=== PATIENT | female | born 1990 | race Caucasian/White ===

== ENCOUNTER 2018-12-30 01:10 | Inpatient (IN) | payer BC, SELFPAY ==
[2018-12-30 03:55] VITALS: BMI 34.9
[2018-12-30] MEDS: 0.9% Saline Lock 10 ML Syringe IV (03:55)
[2018-12-30 04:16] LABS: Hematocrit 39.6 % (37-47); Hemoglobin 13.6 g/dl (12.0-15.0); Mean Corp Hgb Conc 34.3 g/gl (32-36); Mean Corpuscular Volume 87.2 fL (81-99); Mean Platelet Vol. 10.2 fl (6.2-12.0); Platelet Count 266 K/mm3 (150-450); RBC Distribution Width CV 12.9 % (11.6-14.6); RBC Distribution Width SD 39.9 fl (35.1-43.9); Red Blood Count 4.54 M/mm3 (4.2-5.4); White Blood Count 20.9 K/mm3 (4.4-11.0)
[2018-12-30 04:18] LABS: Scan Indicated on CBC? Y/N NO
--- NOTE | 2018-12-30 04:22 | PCM.HP.OB ---
- Problem List (1) Active labor at term Status: Acute (2) History of depression Status: Acute History Date of Admission: 12/30/18 Final ERICK: 12/23/18 Final ERICK Source: LMP Gestational age: 41 Weeks and 0 Days History of this : This is a 28 year-old, G [1], P [0], at 41 weeks gestational age by LMP, confirmed by U/S. Presented to L&D with contractions that started yesterday morning and irregular. Throughout the evening contractions became more regular and this am contractions less than 5 minutes apart and decided to come for admission. Upon arrival cervix 6cm and admitted. Coping well. , mother, and medical program specialist at bedside. Allergies No Known Allergies Allergy (Verified 12/30/18 03:34) Home Medications: Home Medications Vits [Prenatabs FA] 1 tablet PO DAILY 12/30/18 Smoking Status: Never smoker Alcohol: None Number of Fetus(es): 1 Heart Tracing: Admission strip: 155, moderate variability, accels, no decels, Category 1 TOCO: contractions every 2 -3 minutes, strong History Past Pregnancies: Past Pregnancies Delivery Date Name GA/Weeks Outcome Route Weight Infant Gender Labor Length Anesthesia Delivery Location Provider FOB Labs: RPR negative HIV negative GC/CT negative GBS negative Urine tox screen negative Rubella Immune HBsAG Immune A positive, antibody screen negative. Expected Infant Delivery Method: Spontaneous Vaginal Describe any other labor & delivery plans:: Would like unmedicated Review of Systems Constitutional: Denies: Chills, Fever, Weight Change Cardiovascular: Denies: Chest Pain, Palpitations Respiratory: Denies: Cough, Shortness of breath at rest, Sputum production Gastrointestinal: Denies: Abdominal Pain, Nausea, Vomiting Genitourinary: Denies: Dysuria Psychiatric: Denies: Anxiety, Depression, Homicidal Ideations, Suicidal Ideations Physical Exam General: Alert, Oriented x3, No apparent distress HEENT: Atraumatic, Normocephalic Cardiovascular: Regular rate, Regular Rhythm, No murmurs Lungs: Clear to auscultation, Normal air movement, No rhonchi, No wheeze Abdomen: Non Tender, Gravid Extremities:: No edema Neurological: Cranial nerves II-XII grossly intact UNDERWRITING SALES REPRESENTATIVE: Normal external genitalia Estimated gestational size: Appropriate for gestational size Presentation: Cephalic Cervix Dilation (cm): 8 - IBOW Station: -1 Effacement (%): 90 - Anterior lip thickening Assessment/Plan All Active Problems Active labor at term (Acute) History of depression (Acute) This is a 28 year-old, G [1], P [0], at 41 weeks gestational age. A:Active labor progressing Category 1 FHT P: 1) Admit to L&D 2) Routine labs and IV saline lock 3) Positional changes. Ok for tub, shower, or nitrous. 4) Intermittent auscultation 5) notified of admission
--- NOTE | 2018-12-30 04:28 | HP.PCM_ITS ---
- Problem List (1) Active labor at term Status: Acute (2) History of depression Status: Acute History Date of Admission: 12/30/18 Final ERICK: 12/23/18 Final ERICK Source: LMP Gestational age: 41 Weeks and 0 Days History of this : This is a 28 year-old, G [1], P [0], at 41 weeks gestational age by LMP, confirmed by U/S. Presented to L&D with contractions that started yesterday morning and irregular. Throughout the evening contractions became more regular and this am contractions less than 5 minutes apart and decided to come for admission. Upon arrival cervix 6cm and admitted. Coping well. , mother, and water service supervisor at bedside. Allergies No Known Allergies Allergy (Verified 12/30/18 03:34) Home Medications: Home Medications Vits [Prenatabs FA] 1 tablet PO DAILY 12/30/18 Smoking Status: Never smoker Alcohol: None Number of Fetus(es): 1 Heart Tracing: Admission strip: 155, moderate variability, accels, no decels, Category 1 TOCO: contractions every 2 -3 minutes, strong History Past Pregnancies: Past Pregnancies Delivery Date Name GA/Weeks Outcome Route Weight Infant Gender Labor Length Anesthesia Delivery Location Provider FOB Labs: RPR negative HIV negative GC/CT negative GBS negative Urine tox screen negative Rubella Immune HBsAG Immune A positive, antibody screen negative. Expected Infant Delivery Method: Spontaneous Vaginal Describe any other labor & delivery plans:: Would like unmedicated Review of Systems Constitutional: Denies: Chills, Fever, Weight Change Cardiovascular: Denies: Chest Pain, Palpitations Respiratory: Denies: Cough, Shortness of breath at rest, Sputum production Gastrointestinal: Denies: Abdominal Pain, Nausea, Vomiting Genitourinary: Denies: Dysuria Psychiatric: Denies: Anxiety, Depression, Homicidal Ideations, Suicidal Ideations Physical Exam General: Alert, Oriented x3, No apparent distress HEENT: Atraumatic, Normocephalic Cardiovascular: Regular rate, Regular Rhythm, No murmurs Lungs: Clear to auscultation, Normal air movement, No rhonchi, No wheeze Abdomen: Non Tender, Gravid Extremities:: No edema Neurological: Cranial nerves II-XII grossly intact STRANDING SUPERVISOR: Normal external genitalia Estimated gestational size: Appropriate for gestational size Presentation: Cephalic Cervix Dilation (cm): 8 - IBOW Station: -1 Effacement (%): 90 - Anterior lip thickening Assessment/Plan All Active Problems Active labor at term (Acute) History of depression (Acute) This is a 28 year-old, G [1], P [0], at 41 weeks gestational age. A:Active labor progressing Category 1 FHT P: 1) Admit to L&D 2) Routine labs and IV saline lock 3) Positional changes. Ok for tub, shower, or nitrous. 4) Intermittent auscultation 5) notified of admission
[2018-12-30] MEDS: Lactated Ringers 1,000 ML 50 ML IV (06:34)
--- NOTE | 2018-12-30 07:16 | PCM.PROGNOTE ---
Patient Problems: Active and Suspected Problems Active labor at term (Acute) History of depression (Acute) Subjective: Resting on right side in bed with peanut ball. , mother and Auto Former Machine Operator at bedside. Objective: Cervical exam 9cm/90%0 TOCO: every 2-4 minutes, strong Patient placed back on heart monitor and variable deceleration noted. FHR: 130, moderate variability, variable decels, accels, Category 2 - Physical Exam Weight: 203 lb 7.787 oz Body Mass Index (BMI) 34.9 Intake and Output for Last 24 Hours 12/28/18 12/29/18 12/30/18 23:59 23:59 23:59 Intake Total 400 / 400 Output Total 0 / 0 Balance 400 / 400 Laboratory Tests Past 24 Hrs 12/30/18 12/30/18 03:55 03:55 WBC 20.9 H RBC 4.54 Hgb 13.6 Hct 39.6 MCV 87.2 MCH 30.0 MCHC 34.3 RDW 12.9 RDW Differential 39.9 Plt Count 266 MPV 10.2 Blood Type A POSITIVE Antibody Screen NEGATIVE Medical Necessity - Tobacco Use Smoking Status: Never smoker Assessment/Plan All Active Problems Active labor at term (Acute) History of depression (Acute) A: Active Labor Category 2 FHT P: 1) Continuous monitoring. 2) Positional changes 3) Fluid bolus 4) notified of patient status.
--- NOTE | 2018-12-30 07:52 | OB.TRI.PN ---
Progress Notes Date of Service: 12/30/18 Laboratory Studies: Laboratory Tests 12/30/18 12/30/18 Range/Units 03:55 03:55 WBC 20.9 H (4.4-11.0) K/mm3 RBC 4.54 (4.2-5.4) M/mm3 Hgb 13.6 (12.0-15.0) g/dl Hct 39.6 (37-47) % MCV 87.2 (81-99) fL MCH 30.0 (27.0-32.0) pg MCHC 34.3 (32-36) g/gl RDW 12.9 (11.6-14.6) % RDW Differential 39.9 (35.1-43.9) fl Plt Count 266 (150-450) K/mm3 MPV 10.2 (6.2-12.0) fl Blood Type A POSITIVE Antibody Screen NEGATIVE
[2018-12-30] MEDS: Terbutaline 1 MG/ML Vial 0.25 MG SC (08:20)
[2018-12-30] MEDS: Oxytocin 30 units/NS 500 ml 30 UNITS/500 ML IV.SOLN 334 UNITS IV (08:52)
--- NOTE | 2018-12-30 09:13 | PCM.PROGNOTE ---
Patient Problems: Active and Suspected Problems Active labor at term (Acute) History of depression (Acute) Subjective: 0752 progress note. Patient with movement side to side, hands and knees, and positioning to improve heart rate. 02 via face mask and fluid bolus. Objective: FHT 125, moderate variability, recurrent variable decels TOCO: every 2-3 minutes, lasting 60-90 seconds, strong to palpation. 8 cm/100%/+1 - Physical Exam Weight: 203 lb 7.787 oz Body Mass Index (BMI) 34.9 Intake and Output for Last 24 Hours 12/28/18 12/29/18 12/30/18 23:59 23:59 23:59 Intake Total 400 / 400 Output Total 0 / 0 Balance 400 / 400 Laboratory Tests Past 24 Hrs 12/30/18 12/30/18 03:55 03:55 WBC 20.9 H RBC 4.54 Hgb 13.6 Hct 39.6 MCV 87.2 MCH 30.0 MCHC 34.3 RDW 12.9 RDW Differential 39.9 Plt Count 266 MPV 10.2 Blood Type A POSITIVE Antibody Screen NEGATIVE Medical Necessity - Tobacco Use Smoking Status: Never smoker Assessment/Plan All Active Problems Active labor at term (Acute) History of depression (Acute) A:Active Labor, protracted Categroy 2 FHT P: 1) Positional changes, 02 via face mask for recurrent variable decels. Planning amnioinfusion if no resolution. 2) notified or cervical change with progression and FHR recurrent variable decelerations and plan to star amnioinfusion, agrees with plan. 3) Patient to have straight cath due to inability to urinate since admission. 4) Nitrous oxide attempted for pain relief and baby FHT to category 2 and discontinued.
[2018-12-30] MEDS: Oxytocin 30 units/NS 500 ml 30 UNITS/500 ML IV.SOLN 167 UNITS IV (09:24)
--- NOTE | 2018-12-30 09:27 | PCM.OB.VAG ---
- Problem List (1) Active labor at term Status: Acute (2) History of depression Status: Acute (3) Vaginal delivery Status: Acute Vaginal Delivery Maternal Presentation: Active Labor Amniotic Membrane Rupture Type: Artificial - Clear fluid. Terminal meconium Amniotic Fluid Description: Clear Final ERICK: 12/23/18 Gestational age: 41 Weeks and 4 Days Date of Procedure: 12/30/18 Pre-Operative Diagnosis: Active Labor Post-Operative Diagnosis: Surgery/ Procedure Performed: Spontaneous Vaginal Delivery Type of Anesthesia: None Description of Procedure: Patient with recurrent variable decels without improvement. notfied to review tracing. Planning to start amnioinfusion but FHT down to 50, on unit. Patient assessed and complete +2 station. Taken to OR for section or possible vacuum extraction. Once in OR, of viable male infant over intact perineum unmedicated. APGARS 5,8. Delivery complicated by nuchal cord x3, delivered through and terminal meconium. place on maternal abdomen. Spontaneous cry, poor tone and color. Cord clamped and cut by FOB. Baby handed to nursery staff for evaluation by character impersonator. Pitocin started for active third stage management. Placenta delivered intact via maternal effort, 3 vessel cord. Perineum inspected and intact with no lacerations. Vaginal vault extracted for clots. Sponge and instrument count correct. Cord gases obtained. Fundus firm, hemostasis achieved, 300ml EBL. Planning to breastfeed. Mom and baby stable. Baby assisted by nursery staff at warmer. present for delivery. Presentation: Vertex Placental Delivery Description: Spontaneous Placenta Disposition: [facility] Cord Vessel Description: 3 Vessels Cord Gases drawn per routine: ABG, VBG Cord Entanglement: Around neck x 2, loose - CAN x 3 Estimated Blood Loss: 300 ml Infant A gender: Male (1 minute): 5 (5 minute): 8 Episiotomy Description: None Laceration: None Medications given after delivery: IV Pitocin
[2018-12-30 14:00] VITALS: BP 123/48; PULSE 111; RESP 18; TEMP 37
--- NOTE | 2018-12-30 17:20 | PCM.DCVAG ---
Discharge Diet: No Restrictions Discharge Activity: Return to Normal Activity May resume sexual activity in: 4-6 weeks Weight Bearing Status: Weight bearing as tolerated Additional Instructions: If you experience any of the following, contact your healthcare provider. Bleeding that soaks a pad every hour for 2 hours Fever 100.4 or higher Unrelieved incision or abdominal pain Swelling, redness, discharge or bleeding from your incision or episiotomy site Your incision begins to separate Problems urinating (including inability to urinate or burning while urinating). Visual changes Severe headache Flu-like symptoms Pain or redness in one of both of your breasts Pain, warmth, tenderness or swelling in your legs, especially the calf area Frequent nausea and vomiting Symptoms of depression or anxiety If you experience any of the following, call 911 or go to the nearest Emergency Room. Chest pain Problems breathing Seizure activity Partial or complete paralysis of a body part, slurred speech, weakness or drooping of the face, or a sudden inability to walk or hold your balance Allergies/Adverse Reactions: Allergies No Known Allergies Allergy (Verified 12/30/18 03:34) Medications to take at Discharge Vits [Prenatabs FA] 1 tablet PO DAILY 12/30/18 Test Results: Test results from this visit will be discussed in further detail at your follow-up appointment, if applicable.
--- NOTE | 2018-12-30 17:21 | DCINST_ITS ---
Discharge Diet: No Restrictions Discharge Activity: Return to Normal Activity May resume sexual activity in: 4-6 weeks Weight Bearing Status: Weight bearing as tolerated Additional Instructions: If you experience any of the following, contact your healthcare provider. * Bleeding that soaks a pad every hour for 2 hours * Fever 100.4 or higher * Unrelieved incision or abdominal pain * Swelling, redness, discharge or bleeding from your incision or episiotomy site * Your incision begins to separate * Problems urinating (including inability to urinate or burning while urinating). * Visual changes * Severe headache * Flu-like symptoms * Pain or redness in one of both of your breasts * Pain, warmth, tenderness or swelling in your legs, especially the calf area * Frequent nausea and vomiting * Symptoms of depression or anxiety If you experience any of the following, call 911 or go to the nearest Emergency Room. * Chest pain * Problems breathing * Seizure activity * Partial or complete paralysis of a body part, slurred speech, weakness or drooping of the face, or a sudden inability to walk or hold your balance Allergies/Adverse Reactions: Allergies No Known Allergies Allergy (Verified 12/30/18 03:34) Medications to take at Discharge Vits [Prenatabs FA] 1 tablet PO DAILY 12/30/18 Test Results: Test results from this visit will be discussed in further detail at your follow- up appointment, if applicable.
[2018-12-30 17:30] VITALS: BP 118/62; PULSE 105; RESP 16; TEMP 36.3
--- NOTE | 2019-01-06 14:14 | NURSING ---
No answer on follow up phone call. Left voicemail.
== END 2018-12-30 18:45 | disposition home or self-care (01) | DRG 807 ==
PROVIDERS: Admitting Provider Obstetrics & Gynecology; Referring Provider Obstetrics & Gynecology; Visit Provider Obstetrics & Gynecology
DX: O69.81X0 Labor and delivery complicated by cord around neck, without compression, not applicable or unspecified (principal); Z37.0 Single live birth; O76 Abnormality in fetal heart rate and rhythm complicating labor and delivery; O77.0 Labor and delivery complicated by meconium in amniotic fluid; Z3A.41 41 weeks gestation of pregnancy
CPT/HCPCS: 59025; 59050; 85027; 86850; 86900; 99218; J7120; A4216; G0378

== ENCOUNTER 2021-02-08 10:10 | Inpatient (IN) | payer MEDICAID, SELFPAY ==
[2021-02-08] VITALS (18 sets, daily range): BP systolic 98–124; BP diastolic 50–85; PULSE 64–90; RESP 16; TEMP 36.6–37.1; BMI 34.4
[2021-02-08 10:55] LABS: Absolute Lymphocyte Count 1.45 X10^3/uL (0.83-4.51); Absolute Neutrophil Count 12.4 X10^3/uL (2.0-7.7); Basophil# 0.03 X10^3/uL; Basophil% 0.2 % (0-1); Eosinophil# 0.02 X10^3/uL; Eosinophils% 0.1 % (0-5); Hematocrit 43.9 % (37-47); Hemoglobin 14.8 g/dL (12.0-15.0); Lymphocyte # 1.45 X10^3/ul (4.0); Lymphocyte % 9.7 % (19-41); Mean Corp Hgb Conc 33.7 g/dL (32-36); Mean Corpuscular Hgb 29.5 pg (27.0-32.0); Mean Corpuscular Volume 87.5 fL (81-99); Mean Platelet Vol. 10.4 fl (6.2-12.0); Monocyte# 0.96 X10^3/uL; Monocyte% 6.4 % (0-10); NRBC Flagged by Analyzer 0 % (0-5); Neutrophil # 12.44 X10^3/uL (2.7-7.7); Neutrophil % 83.1 % (47-70); Platelet Count 265 K/mm3 (150-450); RBC Distribution Width CV 12.6 % (11.6-14.6); RBC Distribution Width SD 40.2 fl (35.1-43.9); Red Blood Count 5.02 M/mm3 (4.2-5.4)
[2021-02-08] MEDS: Oxytocin 30 units/NS 500 ml 30 UNITS/500 ML IV.SOLN 334 UNITS IV (11:45)
--- NOTE | 2021-02-08 12:03 | HP.PCM_ITS ---
- Problem List (1) Active labor at term Status: Acute History Date of Admission: 12/30/18 Final ERICK: 02/26/21 Final ERICK Source: LMP Gestational age: 37 Weeks and 3 Days History of this : This is a 30 year-old, G [3], P [1], at 37.3 weeks gestational age that presents in spontaneous, active labor. Patient is GDM class A1 and well controlle. has been uncomplicated other than COIVID 19 positive diagnosis at 25 weeks gestation. Allergies No Known Allergies Allergy (Verified 02/08/21 10:59) Home Medications: Home Medications Vits [Prenatabs FA] 1 tablet PO DAILY 12/30/18 Smoking Status: Never smoker Number of Fetus(es): 1 NST - FHR Rate Baby A Baseline: 145 Variability:: Moderate Accelerations:: 15 x 15 Decelerations:: None NST Reactive:: Yes FHR Category:: Category I Uterine Activity:: Palpate every 2-3 minutes and moderate History Past Pregnancies: Past Pregnancies Delivery Date Name GA/ Weeks Outcome Route Wt Sex Labor Length Anesthesia Delivery Location Provider FOB Labs: A+ Rubella - immune HB- neg HC- neg RPR- NR HIV- NR GBS negative Presumed COVID-19 positive on 11/19/20 Expected Delivery Method: Spontaneous Vaginal Review of Systems Constitutional: Denies: Chills, Fever, Weight Change HEENT: Denies: Head Aches, Sinus Congestion, Sinus Drainage Cardiovascular: Denies: Chest Pain, Palpitations Respiratory: Denies: Cough, Shortness of breath at rest, Sputum production Gastrointestinal: Denies: Abdominal Pain, Nausea, Vomiting Genitourinary: Denies: Dysuria Skin: Denies: Rash, Wounds Physical Exam Vitals: Vital Signs Pulse BP 76 112/56 L 02/08/21 12:02 02/08/21 12:02 General: Alert, Oriented x3 HEENT: Atraumatic Cardiovascular: Regular rate Lungs: Normal air movement Abdomen: Soft, Non Tender, Gravid Neurological: Cranial nerves II-XII grossly intact CIGAR MAKING MACHINE SUPERVISOR: Normal external genitalia Estimated gestational size: Appropriate for gestational size Presentation: Cephalic Cervix Dilation (cm): 6 Assessment/Plan All Active Problems Active labor at term (Acute) History of depression (Acute) Vaginal delivery (Acute) This is a 30 year-old, G [3], P [1], at 37.3 weeks gestational age that presents in spontaneous, active labor. Admit to labor and delivery Routine labs IV fluids per policy GBS negative Warm water immersion/ position changes/ massage for pain relief Epidural if indicated Anticipate
--- NOTE | 2021-02-08 12:12 | OP.PCM_ITS ---
Problem List (1) Active labor at term Status: Acute (2) History of depression Status: Acute (3) Vaginal delivery Status: Acute Report of Operation Date of Procedure: 02/08/21 Pre-Operative Diagnosis: Term gestation, spontaneous active labor Post-Operative Diagnosis: same, live female infant Vaginal Delivery Maternal Presentation: Active Labor Patient is a at 37.3 weeks gestation that presented in spontaneous, active labor. Amniotic Membrane Rupture Type: Artificial Rupture of Membrane time: 1110 Amniotic Fluid Description: Lightly stained meconium Final ERICK: 02/26/21 Gestational age: 37 Weeks and 3 Days [place] doctor who attended delivery (if requested by OB): Tony Cheng Date of Procedure: 02/08/21 Pre-Operative Diagnosis: Term gestation, spontaneous, active labor Post-Operative Diagnosis: Same, live female infant Surgery/ Procedure Performed: Spontaneous Vaginal Delivery Type of Anesthesia: None Description of Procedure: Patient arrived to unit in active, spontaneous labor. She quickly progressed to 8 cm and was involuntarily bearing down with contractions. Requested AROM to progress labor. AROM for light meconium stained fluid. Plastic Straightening Roll Operator to room for delivery. Patient repositioned to hands and knees position. Labor support given. head delivered with minimal maternal effort. Loose nuchal cord easily reduced and remainder of delivered quickly. 3 vessel cord was clamped and cut after 10 minute delay. Vigorous infant remained skin to skin with patient. APGARS 8/9. Placenta delivered spontaneously and intact in [place] position. EBL 200 cc. Inspection of perineum and vagina reviled no lacerations. Patient and bonding well. Presentation: CRYSTAL Placental Delivery Description: Spontaneous Placenta Disposition: [facility] Cord Vessel Description: 3 Vessels Nuchal Cord Compression: Without compression Cord Entanglement: Around neck x 1, loose Estimated Blood Loss: 200 Infant A gender: Female - Janie (1 minute): 8 (5 minute): 9 Episiotomy Description: None Laceration: None Medications given after delivery: IV Pitocin Complications: None
[2021-02-08 13:01] LABS: Bedside Glucose 106 mg/dL (70-110)
[2021-02-09] VITALS: BP 103/44; PULSE 78; RESP 16; TEMP 36.6
[2021-02-09 04:23] VITALS: BP 102/44; PULSE 66; RESP 16; TEMP 36.6
--- NOTE | 2021-02-09 04:30 | NURSING ---
Pt requesting to have her fasting blood sugar taken now since she is starving and would like a snack.
[2021-02-09 04:35] LABS: Bedside Glucose 87 mg/dL (70-110)
[2021-02-09 09:00] VITALS: BP 121/70; PULSE 81; RESP 16; TEMP 36.3; O2SAT 97
--- NOTE | 2021-02-09 09:25 | PCM.PN.OB ---
Patient Problems: Active and Suspected Problems Active labor at term (Acute) History of depression (Acute) Vaginal delivery (Acute) Subjective: Doing well per patient and nursing staff. Ambulating and taking PO without difficulty. Voiding and passing flatus. Pain controlled. . Denies any chest pain, shortness of breath, increased vaginal bleeding, leg pain, or headaches. Planning D/C home tomorrow. - Physical Exam Vitals/I&O's: Vital Signs Temp Pulse Resp BP 97.9 F 66 16 102/44 L 02/09/21 04:23 02/09/21 04:23 02/09/21 04:23 02/09/21 04:23 Oxygen Delivery Method Room Air Weight: 200 lb 6.403 oz Body Mass Index (BMI) 34.4 Intake and Output for Last 24 Hours 02/07/21 02/08/21 02/09/21 23:59 23:59 23:59 Intake Total 500 / 500 Balance 500 / 500 General: Alert, Oriented x3, Cooperative HEENT: Atraumatic, Normocephalic Neck: Trachea Midline Lungs: Clear to auscultation, Normal air movement, No rhonchi, No wheeze Cardiovascular: Regular rate, Regular Rhythm, No murmurs Abdomen: Bowel Sounds Present, Soft, Non Tender Extremities: No edema - Rasheed's negative Psych/Mental Status: Normal Affect, Appropriate Laboratory Results 02/08/21 10:25: WBC 15.0 H, RBC 5.02, Hgb 14.8, Hct 43.9, MCV 87.5, MCH 29.5, MCHC 33.7, RDW Std Deviation 40.2, RDW Coeff of Jessica 12.6, Plt Count 265, MPV 10.4, Immature Gran % (Auto) 0.500, Neut % (Auto) 83.1 H, Lymph % (Auto) 9.7 L, [place] % (Auto) 6.4, Eos % (Auto) 0.1, Baso % (Auto) 0.2, Absolute Neuts (auto) 12.4 H, Absolute Lymphs (auto) 1.45, Nucleated RBC % 0 02/08/21 10:25: Blood Type A POSITIVE, Antibody Screen NEGATIVE 02/08/21 12:25: POC Glucose 106 02/09/21 04:31: POC Glucose 87 Current Medications Acetaminophen (Acetaminophen 500 Mg Tablet) 1,000 mg PO Q8H PRN PRN PRN Reason: Pain Score 1-10 Bisacodyl (Bisacodyl 10 Mg Suppository) 10 mg RC UD PRN PRN Reason: If no BM Dibucaine (Dibucaine 30 Gm Tube) 1 applic TOPICAL TID PRN PRN; Protocol PRN Reason: Discomfort Hydrocortisone (Hydrocortisone 2.5% Crm) 1 applic TOPICAL TID PRN PRN; Protocol PRN Reason: Discomfort Ibuprofen (Ibuprofen 600 Mg Tablet) 600 mg PO Q6H PRN PRN PRN Reason: Pain Score 1-10 Methylergonovine Maleate (Methylergonovine 0.2 Mg/Ml Ampul) 0.2 mg IM X1 PRN PRN Reason: Excess bleeding/uterine atony Ondansetron HCl (Ondansetron 4 Mg/2 Ml Vial) 4 mg IV Q4H PRN PRN PRN Reason: Nausea Senna/Docusate Sodium (Senna/Docusate Sodium 1 Tablet) 1 - 2 tablet PO DAILY PRN PRN PRN Reason: Constipation Simethicone (Simethicone 80 Mg Tablet) 80 mg PO PCHS PRN PRN Reason: Indigestion/Stomach pain Sodium Chloride (0.9% Saline Lock 10 Ml Syringe) 5 - 15 ml IV UD PRN PRN Reason: SALINE FLUSH Medical Necessity - Tobacco Use Smoking Status: Never smoker Assessment/Plan All Active Problems Active labor at term (Acute) History of depression (Acute) Vaginal delivery (Acute) A:PPD #1 P: 1) Routine and discharge instructions 2) Ibuprofen and tylenol for pain 3) instructions, [facility], working with . 4) Discharge home tomorrow
[2021-02-09 13:14] VITALS: BP 117/60; PULSE 69; RESP 18; TEMP 36.6; O2SAT 97
[2021-02-09 15:40] VITALS: BP 113/54; PULSE 71; RESP 18; TEMP 36.4; O2SAT 96
[2021-02-09 19:41] VITALS: BP 101/51; PULSE 68; RESP 18; TEMP 36.6
[2021-02-10 02:20] VITALS: BP 113/62; PULSE 64; RESP 16; TEMP 36.6
[2021-02-10 08:04] VITALS: BP 113/60; PULSE 72; RESP 18; TEMP 36.6; O2SAT 97
--- NOTE | 2021-02-10 12:13 | PCM.PN.OB ---
Patient Problems: Active and Suspected Problems Active labor at term (Acute) History of depression (Acute) Vaginal delivery (Acute) Subjective: Doing well per patient and nursing staff. Patient feeling great and states was very healing. Ambulating and taking p.o. without difficulty. Voiding and passing flatus and bowel movement without any issues. Denies any headache, chest pain, shortness of breath, increased vaginal bleeding, leg pain, or other concerns. Breast-feeding issues just due to lip and tongue tie for baby, cup feeding without any difficulty. Making appointment tomorrow morning for further evaluation of baby. Pain controlled. DC home today. - Physical Exam Vitals/I&O's: Vital Signs Temp Pulse Resp BP Pulse Ox 97.8 F 72 18 113/60 97 02/10/21 08:04 02/10/21 08:04 02/10/21 08:04 02/10/21 08:04 02/10/21 08:04 Oxygen Delivery Method Room Air Weight: 200 lb 6.403 oz Body Mass Index (BMI) 34.4 Intake and Output for Last 24 Hours 02/08/21 02/09/21 02/10/21 23:59 23:59 23:59 Intake Total 500 / 500 Balance 500 / 500 General: Alert, Oriented x3, Cooperative HEENT: Atraumatic, Normocephalic Neck: Trachea Midline Lungs: Clear to auscultation, Normal air movement, No rhonchi, No wheeze Cardiovascular: Regular rate, Regular Rhythm, No murmurs Abdomen: Bowel Sounds Present, Soft - Fundus firm 3 below U, Non Tender Extremities: No edema - Homans negative Psych/Mental Status: Normal Affect, Appropriate Current Medications Acetaminophen (Acetaminophen 500 Mg Tablet) 1,000 mg PO Q8H PRN PRN PRN Reason: Pain Score 1-10 Bisacodyl (Bisacodyl 10 Mg Suppository) 10 mg RC UD PRN PRN Reason: If no BM Dibucaine (Dibucaine 30 Gm Tube) 1 applic TOPICAL TID PRN PRN; Protocol PRN Reason: Discomfort Hydrocortisone (Hydrocortisone 2.5% Crm) 1 applic TOPICAL TID PRN PRN; Protocol PRN Reason: Discomfort Ibuprofen (Ibuprofen 600 Mg Tablet) 600 mg PO Q6H PRN PRN PRN Reason: Pain Score 1-10 Methylergonovine Maleate (Methylergonovine 0.2 Mg/Ml Ampul) 0.2 mg IM X1 PRN PRN Reason: Excess bleeding/uterine atony Ondansetron HCl (Ondansetron 4 Mg/2 Ml Vial) 4 mg IV Q4H PRN PRN PRN Reason: Nausea Senna/Docusate Sodium (Senna/Docusate Sodium 1 Tablet) 1 - 2 tablet PO DAILY PRN PRN PRN Reason: Constipation Simethicone (Simethicone 80 Mg Tablet) 80 mg PO PCHS PRN PRN Reason: Indigestion/Stomach pain Sodium Chloride (0.9% Saline Lock 10 Ml Syringe) 5 - 15 ml IV UD PRN PRN Reason: SALINE FLUSH Medical Necessity - Tobacco Use Smoking Status: Never smoker Assessment/Plan All Active Problems Active labor at term (Acute) History of depression (Acute) Vaginal delivery (Acute) A: PPD #2 P: 1) Routine and instructions 2) D/C home today 3) Follow up in 2 weeks and 6 weeks.
--- NOTE | 2021-02-10 12:15 | DCINST_ITS ---
Discharge Diet: No Restrictions Discharge Activity: Return to Normal Activity, May not drive while taking narcotic pain medications., May Shower, May Take a Tub Bath May resume sexual activity in: 4-6 weeks Weight Bearing Status: Full weight bearing Additional Activity Instructions:: Nothing in the vagina for 4-6 weeks. You may return to work/school in 6 weeks. Call your doctor if your incision/area has: Continuous Slow Oozing, Sudden Increased Bleeding, Increased Pain/ Swelling, Increased Redness, Foul Smelling Discharge Call your doctor if you observe: Fever of 101 or Higher, Inability to urinate, Inability to have a bowel movement, Using more than one pad per hour, Shortness of breath, Chest pain, Increased palpitations (irregular heartbeat), Calf discomfort, Uncontrolled pain Additional Instructions: If you experience any of the following, contact your healthcare provider. * Bleeding that soaks a pad every hour for 2 hours * Fever 100.4 or higher * Unrelieved incision or abdominal pain * Swelling, redness, discharge or bleeding from your incision or episiotomy site * Your incision begins to separate * Problems urinating (including inability to urinate or burning while urinating). * Visual changes * Severe headache * Flu-like symptoms * Pain or redness in one of both of your breasts * Pain, warmth, tenderness or swelling in your legs, especially the calf area * Frequent nausea and vomiting * Symptoms of depression or anxiety If you experience any of the following, call 911 or go to the nearest Emergency Room. * Chest pain * Problems breathing * Seizure activity * Partial or complete paralysis of a body part, slurred speech, weakness or drooping of the face, or a sudden inability to walk or hold your balance Allergies/Adverse Reactions: Allergies No Known Allergies Allergy (Verified 02/08/21 10:59) Medications to take at Discharge Vits [Prenatabs FA ] 1 tablet PO DAILY 12/30/18 Acetaminophen [Tylenol] 1,000 mg PO Q8H PRN PRN tablet 02/10/21 Ibuprofen [Motrin] 600 mg PO Q6H PRN PRN tablet 02/10/21 Please Follow Up With: Carrie Espinosa CNM When: Call to make an appointment with your doctor in 2 weeks and 6 weeks. If you had elevated Blood Pressure or 4th degree laceration you will need to be seen in 2 weeks. Test Results: Test results from this visit will be discussed in further detail at your follow- up appointment, if applicable.
[2021-02-10 12:30] VITALS: BP 115/50; PULSE 63; RESP 18; TEMP 36.5; O2SAT 97
== END 2021-02-10 15:45 | disposition home or self-care (01) | DRG 560 ==
LOC: WP 10:14
PROVIDERS: Admitting Provider Advanced Practice Midwife; Referring Provider Advanced Practice Midwife; Visit Provider Advanced Practice Midwife
DX: O77.0 Labor and delivery complicated by meconium in amniotic fluid (principal); O69.81X0 Labor and delivery complicated by cord around neck, without compression, not applicable or unspecified; O24.420 Gestational diabetes mellitus in childbirth, diet controlled; Z3A.37 37 weeks gestation of pregnancy; Z37.0 Single live birth; Z86.16 Personal history of COVID-19
CPT/HCPCS: 59050; 82962; 85025; 86850; 86900; 86901; 99218; G0378

== ENCOUNTER 2022-06-30 09:35 | Inpatient (IN) | payer MEDICAID, SELFPAY ==
[2022-06-30] VITALS (13 sets, daily range): BP systolic 103–131; BP diastolic 45–64; PULSE 65–94; RESP 16; TEMP 36–36.7; O2SAT 96–100; BMI 34.7
[2022-06-30] MEDS: Lactated Ringers 1,000 ML 999 ML IV (10:30)
[2022-06-30 10:43] LABS: Basophil# 0.02 X10^3/uL; Basophil% 0.2 % (0-1); Eosinophil# 0.02 X10^3/uL; Eosinophils% 0.2 % (0-5); Hematocrit 39.4 % (37-47); Hemoglobin 13.5 g/dL (12.0-15.0); Lymphocyte % 21.7 % (19-41); Mean Corp Hgb Conc 34.3 g/dL (32-36); Mean Corpuscular Hgb 29.8 pg (27.0-32.0); Mean Platelet Vol. 10.7 fl (6.2-12.0); Monocyte% 9.2 % (0-10); NRBC Flagged by Analyzer 0 % (0-5); Neutrophil # 5.95 X10^3/uL (2.7-7.7); Neutrophil % 68.1 % (47-70); Platelet Count 221 K/mm3 (150-450); RBC Distribution Width CV 13.6 % (11.6-14.6); RBC Distribution Width SD 42.7 fl (35.1-43.9); Red Blood Count 4.53 M/mm3 (4.2-5.4); White Blood Count 8.7 K/mm3 (4.4-11.0)
[2022-06-30] MEDS: Acetaminophen 500 MG Tablet 1000 MG PO ×2 (10:43→18:30)
[2022-06-30 10:55] LABS: Bedside Glucose 84 mg/dL (74-106)
[2022-06-30] MEDS: Lactated Ringers 1,000 ML 150 ML IV (11:44)
[2022-06-30 13:50] LABS: Bedside Glucose 89 mg/dL (74-106)
[2022-06-30] MEDS: Sodium Citrate/Citric Acid 30 ML UDC PO (15:57)
[2022-06-30] MEDS: Cefazolin 2 GM in 0.9% Normal Saline 100 ML IV (16:00)
--- NOTE | 2022-06-30 16:01 | HP.PCM.OB_ITS ---
History and Physical Date of Admission: 06/30/22 DATE OF SERVICE: June 25, 2022 ? PROBLEM: breech presentation ? DIAGNOSIS: breech presentaiton ? PAST SURGICAL HISTORY: PAST SURGICAL HISTORYExpand by Default PAST SURGICAL HISTORY Procedure Laterality Date ? UNSPECIFIED ORAL SURGERY PROCEDURE, BY REPORT ? ? ? [place] ? ? PAST MEDICAL HISTORY: PAST MEDICAL HISTORYExpand by Default PAST MEDICAL HISTORY Diagnosis Date ? anxiety ? ? Gestational diabetes mellitus (GDM) in third trimester ? ? Gestational diabetes mellitus (GDM) in third trimester ? ? Pneumonia ? ? h/o chronic pneumonia ? depression ? ? Umbilical hernia ? ? ? SUBJECTIVE: A1GDM in the . BG well controlled with diet. Breech presentation accelerated growth. ? SOCIAL HISTORY: SOCIAL HISTORYExpand by Default Social History ? Tobacco Use ? Smoking status: Never Smoker ? Smokeless tobacco: Never Used Vaping Use ? Vaping Use: Never used Substance Use Topics ? Alcohol use: No ? Drug use: No ? ? ALLERGIESExpand by Default ALLERGIES No Known Allergies ? Current Outpatient Medications on File Prior to Visit Medication Sig ? ursodiol (STEPHANY) 250 mg tablet Take 1 tablet by mouth three times daily. ? blood sugar diagnostic test strip 1 Strip four times daily. Use as instructed ? Lancets lancets 1 Each four times daily. Use as instructed ? vitamin B complex (B COMPLEX ORAL) Take by mouth. ? aspirin, enteric coated (ASPIRIN LOW DOSE) 81 mg EC tablet Take 81 mg by mouth once daily. ? magnesium carb,citrate,oxide (MAGNESIUM COMPLEX ORAL) Take by mouth. ? [id number]-epa-fish oil-D3 150-500-200 mg-mg-unit cpDR Take by mouth. ? FOLIC ACID ORAL Take by mouth. ? cholecalciferol, vitamin D3, (VITAMIN D3 ORAL) Take by mouth. ? PNV no.95/ferrous fum/folic ac ( ORAL) Take by mouth. ? No current facility-administered medications on file prior to visit. ? ? OBJECTIVE: ? VITALS: BP 110/72 Wt 198 lb 9.6 oz (90.1 kg) LMP 09/28/2021 (Exact Date) BMI 34.09 kg/m? ? HEENT: Normocephalic, atraumatic. ? SKIN: No lesions. ? CHEST: No increased resp effort. ? HEART: Regular rate. ? BACK: Nontender. ? ABDOMEN: Soft, gravid, NT. ? PELVIC: External genitalia, anus and urethral meatus are normal in appearance and without lesions. Cvx 1 cm ? LOWER EXTREMITIES: There was no pitting edema, no palpable cords and no skin changes. ? ? ? ASSESSMENT: breech presentation ? PLAN: 1) Discussed r/b/a of a section for breech presentation. The rationale for the proposed surgery was discussed in addition to risks, benefits, and alternatives. General pre- and post-operative care was reviewed. Questions were answered. After discussion, the patient indicated a desire to proceed with the planned surgery. ? Senia Roldan, DO Assessment & Plan Assessment/Plan (1) Complete breech presentation: (2) 39 weeks gestation of : (3) Obesity affecting :
--- NOTE | 2022-06-30 17:22 | OP.PCM_ITS ---
Problems Associated Problem List Diagnoses (1) Obesity affecting : (2) 39 weeks gestation of : (3) Complete breech presentation: (4) Gestational diabetes: (5) Excessive growth: Report of Operation Date of Procedure: 06/30/22 Pre-Operative Diagnosis: 39 week gestation, single IUP, breech presentation, A1GDM, obesity, accelerated growth Post-Operative Diagnosis: As above Surgery/Procedure Performed:: PLTCS via pfannenstiel skin incision Description of Surgical Findings:: Viable female infant in complete breech presentation. Mostly clear fluid with terminal meconium. Normal-appearing uterus, bilateral fallopian tubes, bilateral ovaries. Surgeon: Senia Roldan bradley linebacker crewmember: Marisol ADEN Type of Anesthesia: Spinal Special Medications: None Specimen's removed: Placenta Drains: Barker Estimated Blood Loss (mL): 850 Fluids Replaced: 1300 cc Description of Procedure: The patient was taken to the operating room where spinal anesthesia was found to be adequate. She was prepped and draped in the dorsal position with leftward tilt. A Pfannenstiel skin incision was made using the scalpel and this was carried down to the underlying layer of fascia. The fascia was incised in midline. The fascia was extended bluntly. The fascia was dissected off the rectus muscles using a combination of sharp and blunt dissection. Rectus muscles were in the midline. The peritoneum was entered bluntly with good visualization of the bladder. The peritoneal incision was extended bluntly. A bladder blade was inserted. A low transverse incision was made on the uterus with the scalpel. Membranes were ruptured with an Allis clamp for clear fluid. The buttocks of the was brought to the hysterotomy. The buttocks was delivered followed by the legs and the body, followed by the shoulders and the head without any force or delay. The head was flexed during delivery. A vigorous and viable female was delivered easily. The cord was clamped and cut after delay and the infant was handed off to the awaiting nursery staff. The placenta was removed with manual extraction. The uterus was cleared of all clot and debris. The uterus was exteriorized. The hysterotomy was closed in a 2 layer fashion. The uterine incision was initially closed with 1-0 Vicryl in a running locked fashion. A second imbricating layer was performed using 1-0 Vicryl. Bilateral adnexa were normal. The uterus was placed back into the abdomen. Serafin was placed over the hysterotomy and lower uterine segment. The peritoneum was closed with 3-0 Vicryl in a running fashion. The rectus muscles were hemostatic. The fascia was closed with strata fix in a running fashion. Subcutaneous space was irrigated and made hemostatic with the Bovie cautery. The subcutaneous space was reapproximated using 3-0 Vicryl. The skin was closed with 4 Monocryl in a subcuticular fashion. Sterile dressing were placed. Instrument, sponge, needle counts were correct and the patient was taken to the recovery in stable condition. Aerial Gunner Marisol ADEN was present for draping the patient, delivery of the , and closure of the hysterotomy. Grafts/Implants Used: None Complications None Admit VTE Documentation VTE Present on Admission: No VTE Mechan Device Prophylaxis: SCD's
[2022-06-30] MEDS: Oxytocin 30 units/NS 500 ml 30 UNITS/500 ML IV.SOLN 167 UNITS IV (17:30)
[2022-06-30 18:20] LABS: Bedside Glucose 95 mg/dL (74-106)
[2022-06-30] MEDS: Ketorolac 30 MG/ML Syringe IV (18:24)
[2022-06-30] MEDS: Lactated Ringers 1,000 ML 100 ML IV (20:52)
[2022-07-01] VITALS (8 sets, daily range): BP systolic 96–110; BP diastolic 41–63; PULSE 58–88; RESP 16–18; TEMP 35.7–36.6; O2SAT 96–99
[2022-07-01] MEDS: Ketorolac 30 MG/ML Syringe IV ×3 (00:30→12:40)
[2022-07-01] MEDS: 0.9% Saline Lock 10 ML Syringe IV ×3 (00:30→12:41)
[2022-07-01] MEDS: Acetaminophen 500 MG Tablet 1000 MG PO ×4 (00:30→18:10)
[2022-07-01 05:14] LABS: Hematocrit 33.4 % (37-47); Hemoglobin 11.4 g/dL (12.0-15.0); Mean Corp Hgb Conc 34.1 g/dL (32-36); Mean Corpuscular Hgb 30.2 pg (27.0-32.0); Mean Corpuscular Volume 88.6 fL (81-99); Mean Platelet Vol. 10.6 fl (6.2-12.0); Platelet Count 190 K/mm3 (150-450); RBC Distribution Width CV 13.8 % (11.6-14.6); RBC Distribution Width SD 44.7 fl (35.1-43.9); Red Blood Count 3.77 M/mm3 (4.2-5.4); White Blood Count 15.6 K/mm3 (4.4-11.0)
[2022-07-01 05:26] LABS: Bedside Glucose 88 mg/dL (74-106)
--- NOTE | 2022-07-01 08:45 | PCM.PN.OB ---
Subjective Subjective Pain well controlled. Average lochia. Tolerating regular diet. Ambulating. Has been up to urinate without difficulty. Objective Data Objective Data Vital Signs: Vital Signs Temp Pulse Resp BP Pulse Ox O2 Del Method 97.4 F L 58 L 18 102/41 L 99 Room Air 07/01/22 03:04 07/01/22 06:04 07/01/22 06:04 07/01/22 03:04 07/01/22 06:04 07/01/22 06:04 Oxygen Delivery Method Room Air Weight: 89 kg Body Mass Index (BMI) 34.7 Intake & Output: Intake and Output for Last 24 Hours 06/29/22 06/30/22 07/01/22 23:59 23:59 23:59 Intake Total 2714 / 2714 1563.33 / 1563.33 Output Total 2100 / 2100 900 / 900 Balance 614 / 614 663.33 / 663.33 Lab / Micro Data Result Diagrams: 07/01/22 05:05 Labs: Laboratory Results - last 24 hr 06/30/22 10:12: POC Glucose 84 06/30/22 10:15: WBC 8.7, RBC 4.53, Hgb 13.5, Hct 39.4, MCV 87.0, MCH 29.8, MCHC 34.3, RDW Std Deviation 42.7, RDW Coeff of Jessica 13.6, Plt Count 221, MPV 10.7, Immature Gran % (Auto) 0.600, Neut % (Auto) 68.1, Lymph % (Auto) 21.7, [place] % (Auto) 9.2, Eos % (Auto) 0.2, Baso % (Auto) 0.2, Absolute Neuts (auto) 6.0, Absolute Lymphs (auto) 1.90, Nucleated RBC % 0 06/30/22 10:15: Blood Type A POSITIVE, Antibody Screen NEGATIVE 06/30/22 13:29: POC Glucose 89 06/30/22 17:57: POC Glucose 95 07/01/22 05:01: POC Glucose 88 07/01/22 05:05: WBC 15.6 H, RBC 3.77 L, Hgb 11.4 L, Hct 33.4 L, MCV 88.6, MCH 30.2, MCHC 34.1, RDW Std Deviation 44.7 H, RDW Coeff of Jessica 13.8, Plt Count 190, MPV 10.6 Micro: Microbiology 06/30/22 10:15 Nasal Secretion SARS-CoV-2 Antigen (Rapid) - Final Physical Exam Const alert General Appearance: cooperative GI GI Narrative: soft, moderate distention, fundus firm, appropriately tender. Abdominal bandage clean dry and intact Assessment & Plan (1) delivery delivered: PLAN: Postoperative day #1. Patient is doing well. Ambulating and tolerating regular diet. is breast-feeding and doing well. Routine care and likely discharge home tomorrow.
[2022-07-01] MEDS: Senna/Docusate Sodium 1 Tablet PO (09:45)
[2022-07-01] MEDS: Ibuprofen 600 MG Tablet PO (18:10)
[2022-07-01] MEDS: oxyCODONE 5 MG Tablet PO (21:48)
[2022-07-02] MEDS: Ibuprofen 600 MG Tablet PO ×5 (00:14→23:58)
[2022-07-02] MEDS: Acetaminophen 500 MG Tablet 1000 MG PO ×5 (00:14→23:58)
[2022-07-02 02:45] VITALS: BP 114/54; PULSE 66; RESP 16; TEMP 36.2; O2SAT 96
[2022-07-02] MEDS: oxyCODONE 5 MG Tablet PO ×4 (03:01→21:04)
--- NOTE | 2022-07-02 08:22 | PCM.PROGNOTE ---
Subjective Subjective patient seen at bedside, doing well. Patient reports good pain control. lochia mild. passing flatus. breast pumping going well. voiding w/o difficulty. Objective Data Objective Data Vital Signs: Vital Signs Temp Pulse Resp BP Pulse Ox O2 Del Method 97.1 F L 66 16 114/54 L 96 Room Air 07/02/22 02:45 07/02/22 02:45 07/02/22 02:45 07/02/22 02:45 07/02/22 02:45 07/02/22 02:45 Oxygen Delivery Method Room Air Weight: 89 kg Body Mass Index (BMI) 34.7 Intake & Output: Intake and Output for Last 24 Hours 06/30/22 07/01/22 07/02/22 23:59 23:59 23:59 Intake Total 2714 / 2714 1563.33 / 1563.33 Output Total 2100 / 2100 900 / 900 Balance 614 / 614 663.33 / 663.33 Lab / Micro Data Result Diagrams: 07/01/22 05:05 Micro: Microbiology 06/30/22 10:15 Nasal Secretion SARS-CoV-2 Antigen (Rapid) - Final Physical Exam Narrative abd: soft fundus firm. Dressing dry and intact Const alert and oriented x3 General Appearance: cooperative HEENT normocephalic Neck General: normal visual inspection GI soft to palpation and non-distended GI Narrative: Fundus firm Extremity normal to inspection and no calf tenderness Skin no rashes or lesions noted Neuro oriented x3 and CN's II-XII intact bilaterally Psych mental status grossly normal Assessment & Plan Assessment/Plan (1) delivery delivered: PLAN: Plan POD#2 , Doing well Routine care pain mgmt monitor VS ambulation plan for dc home tomorrow
[2022-07-02] MEDS: Senna/Docusate Sodium 1 Tablet PO (09:23)
[2022-07-02 09:30] VITALS: BP 117/61; PULSE 76; RESP 15; TEMP 36.6; O2SAT 98
[2022-07-02 14:39] VITALS: BP 112/51; PULSE 75; RESP 16; TEMP 36.3; O2SAT 97
[2022-07-02 20:01] VITALS: BP 111/55; PULSE 60; RESP 18; TEMP 36.3
[2022-07-03 01:15] VITALS: BP 115/54; PULSE 75; RESP 16; TEMP 36.1; O2SAT 97
[2022-07-03] MEDS: oxyCODONE 5 MG Tablet PO ×2 (03:29→09:11)
[2022-07-03] MEDS: Acetaminophen 500 MG Tablet 1000 MG PO (06:14)
[2022-07-03] MEDS: Ibuprofen 600 MG Tablet PO (06:14)
--- NOTE | 2022-07-03 08:12 | PCM.DC.SUM ---
Providers Date of Admission: 06/30/22 Reason For Visit: PRIMARY Diagnosis Discharge Diagnosis (1) delivery delivered: Status: Acute Code(s): O82 - Encounter for delivery without indication (2) Care and examination of lactating mother: Status: Acute Code(s): Z39.1 - Encounter for care and examination of lactating mother (3) Post-operative pain: Status: Acute Code(s): G89.18 - Other acute postprocedural pain Medications at Discharge Home Medications vits,calcium no.78-iron fumarate-folic acid 29 mg-1 mg tablet (Prenatabs FA) 1 tab PO DAILY 12/30/18 acetaminophen 500 mg tablet 1,000 mg PO Q8H PRN PRN Pain Score 1-10 02/10/21 ibuprofen 600 mg tablet 600 mg PO Q6H PRN PRN Pain Score 1-10 02/10/21 oxycodone 5 mg tablet 5 - 10 mg PO Q4H PRN PRN Pain Score 4-10 5 days #14 tabs 07/03/22 sennosides 8.6 mg-docusate sodium 50 mg tablet (Stool Softener-Stimulant Laxative) 1 - 2 tab PO DAILY #0 tabs 07/03/22 Hospital Course Operations section Summary of Care Provided Hospital Course: Patient here for primary section. Hospital course was uneventful. Physical Exam Narrative Patient seen at bedside. Feeling good. Pain controlled with medications. Ambulating and voiding without difficulty. Passing flatus and has had 2 BM. Denies any headaches, vision changes, dizziness, SOB or CP. Pumping and feeding with bottle. Desires discharge home today. Const alert and no apparent distress General Appearance: cooperative and comfortable Exam Limitations: no limitations HEENT normocephalic Eyes General Eye: normal appearance of both eyes Neck full ROM General: normal visual inspection Chest Chest: symmetrical chest wall rise Resp normal respiratory effort and normal air movement Effort and Inspection: symmetric chest movement Auscultation: clear to auscultation bilaterally Cardio regular rate and regular rhythm GI normal to inspection, nondistended, normoactive bowel sounds Back/Spine normal ROM Extremity full ROM and no calf tenderness General Extremity: normal exam except as noted Skin no rashes or lesions noted Neuro CN's II-XII intact bilaterally Psych mental status grossly normal Weight / BMI Weight Weight: 196 lb 3.382 oz Body Mass Index (BMI) 34.7 ABG / Lab / Microbiology Data Result Diagrams: 07/01/22 05:05 Microbiology: Microbiology 06/30/22 10:15 Nasal Secretion SARS-CoV-2 Antigen (Rapid) - Final D/C Instructions Discharge Diet: No restrictions Discharge Activity: Return to Normal Activity, May Not Drive (2 weeks) and May Shower May resume sexual activity in: 4-6 weeks Weight Bearing Status: Weight bearing as tolerated Call your doctor if your incision/area has: Increased Pain/ Swelling, Increased Redness, Foul Smelling Discharge and Swelling at the incision site Call your doctor if you observe: Fever of 101 or Higher, Inability to urinate, Using more than 1 pad per hour, Dizziness, Chest pain and Calf discomfort Remove Dressing in: leave in place till F/U Cleanse incision/area with: Soap & Water Please Follow Up With: Senia Roldan DO When: 1 week for incision check and dressing removal Meaningful Use Info Meaningful Use Diagnoses (Choose all that apply): None applicable Discharge Plan Admission Admit Date/Time: 06/30/22 09:35 Primary Reason for Your Visit: Primary cesaran section Attending Provider: Senia Roldan Discharge Orders/Prescriptions Prescriptions: New sennosides-docusate sodium [Stool Softener-Stimulant Laxat] 8.6-50 mg Tablet 1 - 2 tab PO DAILY Qty: 0 0RF oxycodone 5 mg Tablet 5 - 10 mg PO Q4H PRN PRN (Reason: Pain Score 4-10) 5 Days Qty: 14 0RF Continued vit,[id number] [Prenatabs FA] 1 TABLET tablet 1 tab PO DAILY acetaminophen 500 MG tablet 1,000 mg PO Q8H PRN PRN (Reason: Pain Score 1-10) 0RF ibuprofen 600 MG tablet 600 mg PO Q6H PRN PRN (Reason: Pain Score 1-10) 0RF Discontinued aspirin [Baby Aspirin] 81 mg Tablet,Chewable 81 mg PO DAILY Disposition Disposition (needs filled in before D/C Order can be placed): Home, Self Care
[2022-07-03 08:25] VITALS: BP 120/78; PULSE 65; RESP 16; TEMP 36.5
[2022-07-03] MEDS: Senna/Docusate Sodium 1 Tablet PO (09:14)
== END 2022-07-03 11:30 | disposition home or self-care (01) | DRG 540 ==
PROVIDERS: Admitting Provider Obstetrics & Gynecology; Visit Provider Obstetrics & Gynecology
PROC: 10D00Z1 Extraction of Products of Conception, Low, Open Approach (ICD-10-PCS; CPT 59514; principal; 2022-06-30 11:45)
DX: O32.1XX0 Maternal care for breech presentation, not applicable or unspecified (principal); O24.420 Gestational diabetes mellitus in childbirth, diet controlled; O99.214 Obesity complicating childbirth; O36.63X0 Maternal care for excessive fetal growth, third trimester, not applicable or unspecified; Z37.0 Single live birth; Z3A.39 39 weeks gestation of pregnancy; Z79.82 Long term (current) use of aspirin; Z87.59 Personal history of other complications of pregnancy, childbirth and the puerperium
CPT/HCPCS: 59050; 82962; 85025; 85027; 86850; 86900; 86901; 87426; 99218; J7120; A4216; G0378; J2405

== ENCOUNTER 2024-11-23 11:32 | Emergency (ER) | payer MEDICAID, SELFPAY ==
[2024-11-23 11:33] VITALS: BP 127/83; PULSE 92; RESP 18; TEMP 37; O2SAT 99; BMI 37.3
--- NOTE | 2024-11-23 11:47 | RAD_ITS ---
EXAM: XR LEFT FOOT COMPLETE, 3 OR MORE VIEWS CLINICAL INDICATION: injury TECHNIQUE: Frontal, lateral and oblique views of the left foot. COMPARISON: No relevant prior studies available. FINDINGS: BONES/JOINTS: No acute fracture or subluxation. Os navicularis is noted. SOFT TISSUES: Normal. No soft tissue swelling or gas. No radiopaque foreign body. RAD/Foot min 3 Views IMPRESSION: No acute bone or joint abnormality. Electronically Signed: Demar Wyatt MD at 13:13 EST ,
--- NOTE | 2024-11-23 12:33 | ED.VIS.LOWEX ---
HPI History of Present Illness HPI Narrative: Patient presents with injury to her left foot that occurred last night. Patient states she was drinking and does not remember exactly how she injured her foot. Patient states her pain is aching. Patient states it is worse with weightbearing. Patient denies any paresthesias or weakness. Patient denies any pain in her lower leg or ankle. Patient denies any other injuries. Chief Complaint: Lower Extremity Injury Informant: patient Onset/Context/Timing Onset: Yesterday Context: Sudden Onset Timing: Continuous Quality of Pain: Aching Location: Left foot Worsened by: Weightbearing Relieved by: Nothing Associated Symptoms Associated Symptoms: Negative for Parasthesia, Weakness or Loss of Funtion PF[facility] Medical History (Updated 11/23/24 @ 12:[address] Pacheco Forman DO) Post-operative pain Care and examination of lactating mother delivery delivered Gestational diabetes Home Medications ?Medication ?Instructions ?Recorded ?Last Taken ?Type vits,calcium no.78-iron 1 tab PO DAILY 12/30/18 12/27/18 18:00 History fumarate-folic acid 29 mg-1 mg 1 tab tablet (Prenatabs FA) acetaminophen 500 mg tablet 1,000 mg (2 x 500 mg) PO Q8H PRN 02/10/21 Unknown Rx PRN Pain Score 1-10 ibuprofen 600 mg tablet 600 mg PO Q6H PRN PRN Pain Score 02/10/21 Unknown Rx 1-10 oxycodone 5 mg tablet 5 - 10 mg (1 - 2 x 5 mg) PO Q4H 07/03/22 Unknown Rx PRN PRN Pain Score 4-10 5 days #14 tabs sennosides 8.6 mg-docusate sodium 1 - 2 tab PO DAILY #0 tabs 07/03/22 Unknown Rx 50 mg tablet (Stool Softener-Stimulant Laxative) Allergy/AdvReac Type Severity Reaction Status Date / Time No Known Allergies Allergy Verified 06/30/22 09:49 Surgical History (Updated 11/23/24 @ 12:[address] Pacheco Forman DO) Hx of wisdom tooth extraction History of section Social History (Updated 11/23/24 @ 12:[address] Pacheco Forman DO) Smoking Status: Never smoker alcohol intake: current alcohol intake frequency: holidays/special occasions only ROS ROS ED Constitutional Constitutional ED: Denies chills or fever(s) Eyes Eyes: Denies blurry vision or change in vision ENT ENT ED: Reports rhinorrhea; Denies sore throat Cardiovascular Cardiovascular: Denies chest pain or palpitations Respiratory/Chest Respiratory/Chest: Denies cough or dyspnea Gastrointestinal Gastrointestinal: Denies nausea or vomiting Genitourinary Genitourinary ED: Denies dysuria or hematuria Musculoskeletal Musculoskeletal: Denies back pain or neck pain Integumentary Denies abscess or rash Neurologic Neurologic: Denies headache(s) or weakness Allergic/Immunologic Allergic/Immunologic ED: Denies mouth swelling or urticaria EXAM Physical Exam Const Vital Signs: 11/23/24 11:33 Temperature 98.6 F Temperature Source Oral Pulse Rate 92 Respiratory Rate 18 Blood Pressure 127/83 H Blood Pressure Mean 97 Pulse Ox 99 Oxygen Delivery Method Room Air Positive well nourished and well developed General Appearance ED: well developed HEENT Reports moist mucous membranes Neck full ROM and supple Extremity Extremity Narrative: There is tenderness across the anterior aspect of the left midfoot. There is no edema or ecchymosis. There is no obvious deformity noted. There is no bony crepitus or step-off. Range of motion is limited in all motions of the left foot secondary to pain. Pedal pulses are equal bilaterally. Sensation was intact to light touch in all digits. Capillary refill was less than 2 seconds in all digits. There is no tenderness over the medial or lateral malleoli. There is no tenderness over the proximal fibula. Neuro oriented x3, CN's II-XII intact bilaterally, moves all extremities and no sensory deficits noted Sensorium / Orientation: alert Motor Exam: strength 5/5 throughout Psych mental status grossly normal MDM MDM MDM Narrative Medical decision making narrative: Differential diagnosis includes fracture, sprain, and contusion. X-rays of the left foot will be obtained to assess for fracture and dislocation. Radiography Diagnostic Testing: Clinical Impression(s) from Imaging Studies Foot X-Ray 11/23/24 11:47 IMPRESSION: No acute bone or joint abnormality. Electronically Signed: Demar Wyatt MD at 13:13 EST Reading Location ID and State: [address] [place] [address] Tel , Service support , X-rays of the left foot were obtained. There are 3 views. On my independent interpretation, there is no acute fracture or dislocation noted. There is no soft tissue swelling noted. Radiologist also interpreted the x-rays and agrees. Treatment and Re-Evaluation Narrative: Patient was advised of her findings. Patient was given a walking boot. Patient was instructed to ice and elevate the left foot. Patient was instructed to follow-up with her primary care physician in 5 to 7 days. Patient was instructed return if worse in any way. Patient understood and was agreeable with the plan. All questions were answered Discharge Plan Triage Chief Complaint: Lower Extremity Injury ED Provider: Pacheco Forman Dx/Rx/DC Orders Clinical Impression: Sprain of left foot Instructions: ED Foot Sprain Prescriptions: No Action vit,[id number] [Prenatabs FA] 1 TABLET tablet 1 tab PO DAILY acetaminophen 500 MG tablet 1,000 mg PO Q8H PRN PRN (Reason: Pain Score 1-10) 0RF ibuprofen 600 MG tablet 600 mg PO Q6H PRN PRN (Reason: Pain Score 1-10) 0RF sennosides-docusate sodium [Stool Softener-Stimulant Laxat] 8.6-50 mg Tablet 1 - 2 tab PO DAILY Qty: 0 0RF oxycodone 5 mg Tablet 5 - 10 mg PO Q4H PRN PRN (Reason: Pain Score 4-10) 5 Days Qty: 14 0RF Primary Care Provider: Care Physician,No Primary Referrals: Dong Lara MD [Med Staff - [employer]] - 5-7 Days Care Physician,No Primary [Primary Care Provider] - Print Language: Marshallese Disposition Disposition: Home, Self Care
[2024-11-23 13:41] VITALS: BP 134/64; PULSE 78; RESP 16; TEMP 37.1; O2SAT 99
== END 2024-11-23 13:41 | disposition home or self-care (01) ==
PROVIDERS: Emergency Provider Emergency Medicine; Visit Provider Emergency Medicine
DX: S93.602A Unspecified sprain of left foot, initial encounter (principal); X58.XXXA Exposure to other specified factors, initial encounter
CPT/HCPCS: 73630; 99283

== ENCOUNTER 2025-08-17 15:39 | Emergency (ER) | payer MEDICAID, SELFPAY ==
[2025-08-17 15:41] VITALS: BP 133/72; PULSE 98; RESP 18; TEMP 36.7; O2SAT 97; BMI 39.0
--- NOTE | 2025-08-17 16:18 | EKG12_ITS ---
Test Reason : SOB Blood Pressure : */* mmHG Vent. Rate : 68 BPM Atrial Rate : 68 BPM P-R Int : 172 ms QRS Dur : 84 ms QT Int : 408 ms P-R-T Axes : 34 74 55 degrees QTcB Int : 433 ms Normal sinus rhythm Normal ECG Confirmed by TK PENA, POPEYE ([id number]), newspaper managing editor ANH GOYAL ([id number]) on 08/18/2025 11:01:36 AM Referred By: Confirmed By: POPEYE FREY MD
--- NOTE | 2025-08-17 16:19 | EDS_ITS ---
HPI History of Present Illness Chief Complaint: Shortness of Breath Narrative Narrative: Patient is a 34-year-old female presenting to the emergency for shortness of breath for the past week. Patient has no significant past medical history. She reports chills, cough and shortness of breath with any activity as well as at rest. States that usually the cough is dry but sometimes she does have a little bit of sputum production with it. States that her mom had pneumonia last week and this is what she is concerned about. She denies any chest pain. She denies any sick contacts that she knows of. Denies any history of PE or DVT. Denies any family sudden cardiac history. Denies any recent hospitalizations, surgeries or travel. She denies any use of hormones or OCPs. Denies any inspiratory chest pain. She does not smoke. [facility] Medical History Post-operative pain Care and examination of lactating mother delivery delivered Gestational diabetes Home Medications ?Medication ?Instructions ?Recorded ?Last Taken ?Type vits,calcium no.78-iron 1 tab PO DAILY pregna ncy 12/30/18 12/27/18 18:00 History fumarate-folic acid 29 mg-1 mg 1 tab tablet (Prenatabs FA) acetaminophen 500 mg tablet 1,000 mg (2 x 500 mg) PO Q 8H PRN 02/10/21 Unknown Rx PRN Pain Score 1-10 ibuprofen 600 mg tablet 600 mg PO Q6H PRN PRN Pain S core 02/10/21 Unknown Rx 1-10 oxycodone 5 mg tablet 5 - 10 mg (1 - 2 x 5 mg) PO Q4H 07/03/22 Unknown Rx PRN PRN Pain Score 4-10 5 days #14 tabs sennosides 8.6 mg-docusate sodium 1 - 2 tab PO DAILY # 0 tabs 07/03/22 Unknown Rx 50 mg tablet (Stool Softener-Stimulant Laxative) amoxicillin 500 mg capsule 1,000 mg (2 x 500 mg) PO Q8 H 5 08/17/25 Unknown Rx days #30 caps doxycycline hyclate 100 mg tablet 100 mg PO BID 5 days #10 tabs 08/17/25 Unknown Rx Allergy/AdvReac Type Severity Reaction Status Date / Time No Known Allergies Allergy Verified 08/17/25 15:41 Surgical History Hx of wisdom tooth extraction History of section Social History Smoking Status: Never smoker alcohol intake: current alcohol intake frequency: holidays/special occasions only ROS ROS ED ROS Narrative See HPI EXAM Physical Exam Narrative Exam Narrative: Vital signs: Reviewed General: Alert and oriented x 3. No acute distress HEENT: Head is normocephalic and atraumatic, sinuses nontender, pupils equal round and reactive. Nares are patent. Oropharynx and throat exams normal. Neck: Supple without lymphadenopathy nontender Cardiovascular: Regular rate and rhythm, no murmurs. No tachycardia. No rubs or gallops. Normal S1 and S2 Respiratory: Clear to auscultation bilaterally. No wheezes, rales, rhonchi Abdominal: Soft and nontender. Normal bowel sounds. No guarding or rebound. Nonsurgical abdomen Extremities: No edema. No tenderness. No bruising. Normal range of motion. Normal sensation. Skin: No rash or redness. The rest of the physical exam is unremarkable Const Vital Signs: 08/17/25 15:41 08/17/25 17:11 08/17/25 17:40 Temperature 98.1 F Temperature Source Temporal Pulse Rate 98 66 Respiratory Rate 18 17 Respiratory Effort Normal Respiratory Depth Normal Respiratory Pattern Normal Blood Pressure 133/72 H 117/64 Blood Pressure Mean 92 81 Pulse Ox 97 100 Oxygen Delivery Method Room Air Room Air 08/17/25 19:16 Temperature 97.8 F Temperature Source Pulse Rate 74 Respiratory Rate 16 Respiratory Effort Respiratory Depth Respiratory Pattern Blood Pressure 112/67 Blood Pressure Mean 82 Pulse Ox 100 Oxygen Delivery Method MDM MDM MDM Narrative Medical decision making narrative: Patient is a 34-year-old female presenting to the emergency department for shortness of breath, chills and cough for the past week. Patient was seen and examined. Vitals are stable. No tachycardia, hypoxia and is afebrile. Differential includes but is not limited to: Pneumonia, viral illness, bronchitis, less likely ACS, PE, CHF PERC negative. Given the patient's reported chills and cough I think this is likely viral in nature versus possible pneumonia. EKG shows normal sinus rhythm with no ischemic changes. No dysrhythmia. Do not suspect ACS based on story and with a normal EKG do not think it is necessary to obtain troponins at this time. CBC with no leukocytosis and a normal hemoglobin. BMP with bicarb of 20.8 otherwise no significant abnormalities. Viral swab negative. Chest x-ray shows a subtle hazy opacity in the posterior right midlung zone suspicious for pneumonia as well as an ovoid masslike density left paraspinal region at T7-T9 recommend further evaluation with contrast-enhanced CT chest. CTA chest with IV contrast was ordered and this shows multifocal patchy nodular opacities which is suspicious for underlying infectious versus inflammatory process such as pneumonia. They recommended short-term follow-up to ensure resolution. Discussed findings with patient. Started on amoxicillin and doxycycline here in the emergency department and discharged home with prescription as well. I did discuss with her the CT findings and that she needs to follow-up with her primary care doctor to have a repeat CT done once resolution of her symptoms occurs. Patient understands and is agreeable. Patient discharged from the Emergency Department. I do not feel that the patient's evaluation reveals any acute reason for admission at this time. I instructed them to either follow-up with their primary care physician or promptly return to the Emergency Department for reevaluation should symptoms worsen or new symptoms develop. I explained what symptoms would indicate the need to return to the emergency department. Shared decision making was used. The patient voiced understanding of the treatment plan and is agreeable with it. Clinical impression Pneumonia History & Record Review Discussion w/independent historian: Patient Lab Data Attestation: I reviewed the patient's lab results. Labs: Laboratory Results - last 24 hr 08/17/25 16:30 WBC 8.6 RBC 4.36 Hgb 12.9 Hct 37.6 MCV 86.2 MCH 29.6 MCHC 34.3 RDW Std Deviation 39.6 RDW Coeff of Jessica 12.5 Plt Count 306 MPV 9.4 Immature Gran % (Auto) 0.200 Neut % (Auto) 66.4 Lymph % (Auto) 18.5 L [place] % (Auto) 12.6 H Eos % (Auto) 2.0 Baso % (Auto) 0.3 Absolute Neuts (auto) 5.7 Absolute Lymphs (auto) 1.59 Nucleated RBC % 0 Sodium 136 Potassium 4.1 Chloride 104 Carbon Dioxide 20.8 L Anion Gap 11 BUN 7 Creatinine 0.72 Estim Creat Clear Calc 126.46 Est GFR (MDRD) Non-Af 115 BUN/Creatinine Ratio 10.4 Glucose 102 H Calcium 8.7 Radiography Chest X-Ray - ED: Read by ED Physician and Right Infiltrate Diagnostic Testing: Clinical Impression(s) from Imaging Studies Chest X-Ray 08/17/25 16:41 IMPRESSION: Subtle hazy opacity in the posterior right mid lung zone, suspicious for pneumonia. Ovoid masslike density left paraspinal region at T7-T9. Recommend further evaluation with contrast-enhanced CT chest. Reading Location: [facility] Chest CT 08/17/25 17:01 IMPRESSION: Multifocal patchy nodular opacities including masslike consolidation within left lower lung spanning from T7-T9 vertebral bodies. These findings are suspicious for underlying infectious/inflammatory process such as pneumonia. Attention on short-term follow-up imaging is recommended to ensure resolution. Reading Location: [facility] Discharge Plan Triage Chief Complaint: Shortness of Breath ED Provider: Anju Falcon Dx/Rx/DC Orders Clinical Impression: Pneumonia Instructions: ED Pneumonia (Adult) Prescriptions: New amoxicillin 500 mg capsule 1,000 mg PO Q8H 5 Days Qty: 30 0RF doxycycline hyclate 100 mg tablet 100 mg PO BID 5 Days Qty: 10 0RF No Action vit,stormy [id number] [Prenatabs FA] 1 TABLET tablet 1 tab PO DAILY acetaminophen 500 MG tablet 1,000 mg PO Q8H PRN PRN (Reason: Pain Score 1-10) 0RF ibuprofen 600 MG tablet 600 mg PO Q6H PRN PRN (Reason: Pain Score 1-10) 0RF sennosides-docusate sodium [Stool Softener-Stimulant Laxat] 8.6-50 mg Tablet 1 - 2 tab PO DAILY Qty: 0 0RF oxycodone 5 mg Tablet 5 - 10 mg PO Q4H PRN PRN (Reason: Pain Score 4-10) 5 Days Qty: 14 0RF Primary Care Provider: Care Physician,No Primary Referrals: Lita Weiner MD [Med Staff - [employer], Internal Medicine] - 2 Days Care Physician,No Primary [Primary Care Provider, Medical] Activity Restrictions/Additional Instructions: Take the antibiotics as prescribed. You need to follow-up with the primary care doctor I provided you in about 2 weeks to verify the resolution of your chest x- ray findings. Your evaluation in the Emergency Department did not reveal any acute reason for admission. However, I want to emphasize that you may be early in the course of a disease process or illness even if it is not present. For this reason you should follow-up within 24 hours for reevaluation with either your primary care physician or if [facility] You should return to the Emergency Department immediately if your symptoms worsen or new symptoms develop. Print Language: Turkish Disposition Disposition: Home, Self Care Discharge Date/Time: 08/17/25 19:17
--- NOTE | 2025-08-17 16:41 | RAD_ITS ---
PROCEDURE: CHEST PA AND LATERAL 08/17/2025 REASON FOR EXAM: SOB TECHNIQUE: Procedure Code: RADCXR Modality: DX Procedure: CHEST PA AND LATERAL COMPARISON: None. FINDINGS: Lungs/Pleura: Subtle hazy airspace opacity in the right posterior mid lung zone, suspicious for pneumonia. Additionally, there is an ovoid left paraspinal masslike density measuring 6.2 x 2.7 cm at the left aspect of the midthoracic spine, spanning T7-T9. No pneumothorax or pleural effusion. Heart/Mediastinum: Within normal limits. No significant vascular congestion. Bones/Soft tissues: No acute or aggressive osseous abnormality. RAD/Chest PA and Lateral IMPRESSION: Subtle hazy opacity in the posterior right mid lung zone, suspicious for pneumo luis angel. Ovoid masslike density left paraspinal region at T7-T9. Recommend further eval uation with contrast-enhanced CT chest. Reading Location: [id number]
[2025-08-17 16:49] LABS: Hematocrit 37.6 % (37-47); Hemoglobin 12.9 g/dL (12.0-15.0); Immature Granulocytes Count 0.020 X10^3/uL (0.0-0.0); Mean Corp Hgb Conc 34.3 g/dL (32-36); Mean Corpuscular Volume 86.2 fL (81-99); Mean Platelet Vol. 9.4 fl (6.2-12.0); NRBC Flagged by Analyzer 0 % (0-5); Platelet Count 306 K/mm3 (150-450); RBC Distribution Width CV 12.5 % (11.6-14.6); RBC Distribution Width SD 39.6 fl (35.1-43.9); Red Blood Count 4.36 M/mm3 (4.2-5.4); White Blood Count 8.6 K/mm3 (4.4-11.0)
--- NOTE | 2025-08-17 17:01 | CT_ITS ---
PROCEDURE: CHEST WITH CONTRAST 08/17/2025 REASON FOR EXAM: ABNORMALITY ON CXR TECHNIQUE: Procedure Code: CTCHW Modality: CT Procedure: CHEST WITH CONTRAST Coronal and Sagittal reconstruction series were provided. CONTRAST: Isovue-300 VOLUME: 100 mL One or more dose reduction techniques were used (e.g., Automated exposure control, adjustment of the mA and/or kV according to patient size, use of iterative reconstruction technique). RADIATION DOSE SUMMARY: CTDlvol: 16. 1 mGy DLP: 589 mGycm COMPARISON: Chest x-ray 08/17/2025 FINDINGS: Hardware: None Lymph nodes: Scattered mediastinal lymph nodes measuring up to 4 mm. Heart and Vasculature: Thoracic aorta and pulmonary arteries are unremarkable. Lungs and Airways: Multiple nodular opacities with surrounding tree-in-bud nodules within right lower lobe. Additionally there is masslike consolidation within left lower lobe with surrounding patchy nodularity and reticulation at the level of T7 and T9 vertebral bodies. Multifocal patchy nodular opacities are also visualized within left upper lung. Pleura: Mild bibasilar atelectasis. Upper Abdomen: Small hiatal hernia. Bones: Unremarkable CT/Chest WITH Contrast IMPRESSION: Multifocal patchy nodular opacities including masslike consolidation within lef t lower lung spanning from T7-T9 vertebral bodies. These findings are suspicious for underlying infectious/inflammatory process ham ch as pneumonia. Attention on short-term follow-up imaging is recommended to ensure resolution. Reading Location: [id number]
--- NOTE | 2025-08-17 17:04 | CM.ED ---
Social Work Reason for visit: No PCP Patient stated that she has been for so many years in a row that she has not gotten a primary care due to seeing her OBGYN. [facility] provider list was given to patient, patient accepting of same. No further needs identified at this time. Iris Diaz, ERP PM, [employer]
[2025-08-17 17:09] LABS: Anion Gap 11 (5-15); BUN 7 mg/dL (4-19); BUN/Creat Ratio 10.4 RATIO (10-20); Calcium,Total 8.7 mg/dL (7.6-11.0); Carbon Dioxide 20.8 mmol/L (21.0-32.0); Chloride 104 mmol/L (98-108); Estimated Creatinine Clearance 126.46 ml/min (50-250); Glucose 102 mg/dL (70-99); Potassium 4.1 mmol/L (3.3-5.1)
[2025-08-17 17:11] VITALS: O2SAT 98
[2025-08-17 17:40] VITALS: BP 117/64; PULSE 66; RESP 17; O2SAT 100
[2025-08-17] MEDS: AMOXICILLIN 500 MG CAPSULE 1000 MG PO (19:12)
[2025-08-17 19:16] VITALS: BP 112/67; PULSE 74; RESP 16; TEMP 36.6; O2SAT 100
== END 2025-08-17 19:17 | disposition home or self-care (01) ==
PROVIDERS: Emergency Provider Student in an Organized Health Care Education/Training Program; Visit Provider Student in an Organized Health Care Education/Training Program
DX: J18.9 Pneumonia, unspecified organism (principal)
CPT/HCPCS: 71046; 71260; 80048; 85025; 87631; 93005; 99284; Q9967; A4216